=== PATIENT | male | born 1995 | race Caucasian/White ===

== ENCOUNTER → 2019-03-18 11:08 | Outpatient (CLI) | payer OTHER, SELFPAY | PROVIDERS: Family Provider Family Medicine; PCP Family Medicine; Referring Provider Otolaryngology Otolaryngology/Facial Plastic Surgery; Visit Provider Otolaryngology Otolaryngology/Facial Plastic Surgery | DX: T78.40XA Allergy, unspecified, initial encounter (principal) | CPT/HCPCS: 36415 ==

== ENCOUNTER → 2019-10-05 08:55 | Outpatient (CLI) | payer OTHER, SELFPAY ==
[2019-10-05 08:52] VITALS: BMI 28.2
--- NOTE | 2019-10-05 08:55 | RAD_ITS ---
STUDY: X-RAY - RIGHT KNEE REASON FOR EXAM: Male, 23 years old. PAIN AND SWELLING AFTER INJURY. DIFFICULT TO STRAIGHTEN TECHNIQUE: 4 view(s) of the knee. COMPARISON: None. FINDINGS: Normal visualized distal femur. Normal visualized proximal tibia and fibula. Normal proximal tibiofibular articulation. Normal medial femorotibial compartment. Normal lateral femorotibial compartment. Normal patellofemoral articulation. Small joint effusion. RAD/Knee 4 or More Views IMPRESSION: Small joint effusion. Electronically Signed: Mina Burciaga, at 15:09 EDT , Service support ,
== END ==
PROVIDERS: PCP Family Medicine; Referring Provider Orthopaedic Surgery; Visit Provider Orthopaedic Surgery
DX: M25.561 Pain in right knee (principal)
CPT/HCPCS: 73564

== ENCOUNTER → 2019-10-07 06:26 | Outpatient (CLI) | payer OTHER, SELFPAY ==
[2019-10-05 08:52] VITALS: BMI 28.2
--- NOTE | 2019-10-07 06:28 | MRI_ITS ---
STUDY: MRI RIGHT KNEE REASON FOR EXAM: 23-year-old male. Wrestling injury. TECHNIQUE: Standardized fat and water weighted pulse sequences were obtained in all 3 orthogonal planes. COMPARISON: None. FINDINGS: Patellofemoral articular cartilage preserved. Lateral compartment articular cartilage preserved. Medial compartment articular cartilage preserved. Posterior lateral tibial corner bone contusion/edema (sagittal image 7 series 4). No acute fracture line. No acute dislocation. Lateral meniscal tiny free edge vertical tear (coronal image 13 series 7 and sagittal image 7 series 4) with potential posterior horn radial tear component versus less likely irregular meniscal femoral ligament attachment site (sagittal images 7 through 11 series 4). Medial meniscus intact. Anterior cruciate ligament rupture (sagittal image 15 series 4). Posterior cruciate ligament intact. Medial collateral ligament near complete proximal fiber tear (coronal image 16 series 6). Large volume joint effusion. Small popliteal cyst. Extensive soft tissue swelling predominating medially. Normal distal semimembranosus, gracilis and semitendinosus tendons. Normal proximal tibiofibular articulation. Normal lateral collateral (fibular) ligament. Normal popliteus tendon. Normal biceps femoris tendon. Normal medial and lateral patellar retinaculum. Normal quadriceps tendon. Normal patellar tendon. Normal Hoffa''s fat pad. MRI/Lower Ext Joint Only (Routine) IMPRESSION: ACL rupture with corresponding bone contusion MCL near complete proximal fiber tear Lateral meniscal tears Large volume joint effusion, small popliteal cyst and soft tissue swelling Electronically Signed: Caesar Isidro DO at 8:14 EDT Tel , Service support ,
== END ==
PROVIDERS: PCP Family Medicine; Referring Provider Orthopaedic Surgery; Visit Provider Orthopaedic Surgery
DX: S83.519A Sprain of anterior cruciate ligament of unspecified knee, initial encounter (principal); S83.241A Other tear of medial meniscus, current injury, right knee, initial encounter; S83.411A Sprain of medial collateral ligament of right knee, initial encounter
CPT/HCPCS: 73721

== ENCOUNTER 2019-10-17 13:03 | Outpatient (RCR) | payer OTHER, SELFPAY ==
[2019-10-11 13:01] VITALS: BMI 28.2
--- NOTE | 2019-10-17 14:18 | HP.PTEVAL ---
Patient's Visit Information TAJ BURKS is a 24 year old M referred to Physical Therapy by Dr. Amanda Fierro, DO with a diagnosis of MCL/ACL TEAR,MEDIAL/LATERAL MENISCUS TEAR. Date of Evaluation: 10/17/19 Physical Therapist: Dave Sanders, PT, Cert MDT, OCS - Visit Plan Frequency: 1X Plan: PT EVAL ONLY PROVIDED WITH HEP - Subjective This 24 y/o male presenst to physical therapy with right knee ACL/MCL and medial/lateral meniscus tear. Patient tore knee ligaments wrestling with brother twisted and felt pop with pain a swelling September 30. Seen DR Fierro did MRI showed tears. Recommended HEP and brace on for gait and crutches with NBW RLE. Patient had edema and min pain. Patient has min c/o 's .Patient has difficulty one step with crutches. Denies parathesia/tingling. Patient need PT prior to surgery. Patient condtion affects QOL. 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 GAIT: ambulates with crutches NWB RL with crutches. BALANCE: good - with crutches. QUAD ATROPHIED. EDEMA: + joint line. PALPATION: tender medial joint line. AROM: 20-70 degrees supine knee flexion. MMT: quads/hams NT,hip 4-/5 ankle 4/5. QUAD SET POOR - Special Tests R Knee Lore - Meniscus: Positive R Knee Delmar - ACL: Positive R Knee Anterior Drawer - ACL: Positive R Knee Valgus - MCL: Positive - Goals Goal 1:: Patient was provided with HEP for Prehab. Goal Time Frame: 1visits - Rehabilitation Potential Physical Therapy Diagnosis: Patient has right ACL/MCL tear ,meniscus medial/lateral knee with poor ,strength impairs gait and function ,thus plan for surgery end of month.Provided with HEP. Rehabilitation Potential: Good - Anticipated Interventions Patient/Client Instruction: Educate patient on: Condition, Plan of Care For the Purpose of:: To decrease pain, To increase ROM, To improve muscle performance and motor function, To improve ability to perform ADL's, To increase tolerance to activity/condition/position, To improve ability of physical actions for home/community/work/leisure, To increase flexibility/ROM Other: HEP Thank you for the opportunity to evaluate your patient. For Medicare and Medicare HMO plans, please review the plan of care and approve it. It will need to be FAXED BACK to us at [phone] for Medicare purposes. For Medicare only, by signing this I certify the plan of care. Please let me know if there are questions or concerns regarding this plan of care. Physician Signature: Date:
== END 2019-10-17 19:00 | disposition home or self-care (01) ==
LOC: PT 13:03
PROVIDERS: PCP Family Medicine; Referring Provider Orthopaedic Surgery; Visit Provider Orthopaedic Surgery
DX: S83.241D Other tear of medial meniscus, current injury, right knee, subsequent encounter (principal); S83.281D Other tear of lateral meniscus, current injury, right knee, subsequent encounter
CPT/HCPCS: 97110; 97162

== ENCOUNTER 2020-01-04 10:10 | Day surgery (SDC) | payer OTHER, SELFPAY ==
[2019-10-11 13:01] VITALS: BMI 28.2
[2019-12-27 09:54] VITALS: BMI 28.2
[2020-01-04] VITALS (8 sets, daily range): BP systolic 121–177; BP diastolic 87–106; PULSE 72–107; RESP 14–16; TEMP 36.9–37.7; O2SAT 96–100; BMI 28.8
[2020-01-04] MEDS: Lactated Ringers 1,000 ML 100 ML IV ×2 (12:15→13:16)
[2020-01-04] MEDS: Cefazolin 2 GM in 0.9% Normal Saline 100 ML IV (12:20)
--- NOTE | 2020-01-04 12:30 | HP_ITS ---
I have re-examined the patient. There are no clinical changes since date of exam. Intake Intake Visit Reasons: RIGHT KNEE Allergies bee venom protein (honey bee) Allergy (Verified 12/02/19 11:17) swelling PFSH Surgical History (Updated 10/05/19 @ 08:56 by Leta Mendes) H/O left wrist surgery (Acute) Social History (Updated 12/27/19 @ 12:[address] Amanda Fierro, ) Smoking Status: Current some day smoker HPI RIGHT KNEE: Surgical H&P: Yes Details: Parts of this documentation were recorded by a scribe, this documentation accurately reflects the service provided and the decisions made by me, Dr. Amanda Fierro, 12/27/19 0943. TAJ BURKS is a 24 year old M here today for right knee followup. Patient continues to have generalized right knee pain and states that he has been having increased lateral knee pain. He is here today to sign surgery consent for right ACL reconstruction and medial and lateral meniscus repair vs meniscectomy. Denies numbness, tingling or other associated symptoms.Has been wearing his TROM brace locked in extension. ROS Musc Reports as per HPI Skin/Breast Reports as per HPI Neuro Yes as per HPI Ortho Exam Right Knee Skin/Wound: No erythema, No ecchymosis, No swelling Knee ROM: Yes ROM-Extension -20 to 0, No ROM-Flexion 0-140 Examination: Yes Med jt line tenderness Stability: 1+: Valgus 30 (Minimal laxity today), 3+: Anterior Drawer KNEE: no calf pain Assessment & Plan Problems 1. Complete tear of anterior cruciate ligament of right knee, subsequent encounter S83.813D 2. Tear of medial meniscus of right knee, current, unspecified tear type, subsequent encounter S83.000D Plan Reviewed the pre-operative plans with the patient. Risks and benefits of the procedure were fully explained, including but not limited to infection, neurovascular injury, continued pain, arthritis, stiffness, need for further surgery, re-injury, DVT, PE, general risks of anesthesia, and loss of limb or life. The patient understands all the risks and does wish to proceed with written consent. Spoke with the patient about the risk of arthofibrosis with ACL reconstruction and meniscus repair. We discussed the current risk associated COVID-19. While it is understood that there is a community spread of COVID 19 the risk of alex COVID-19 while at [facility] is very low, however, the risk cannot be completely mitigated because of the community spread of the disease. We discussed in detail the risk of exposure to and or potential harm posed by the COVID-19 virus with having a surgery/procedure at this time versus the risk of delaying the surgery/procedure. Is not possible to know either the risk of delaying the surgery procedure or chance of getting an infection with perfect accuracy, but a joint decision was made to proceed at this time with a schedule surgery/procedure as indicated on the consent form. Patient was notified that we will need to comply with any screening or testing [facility] wishes to perform or that surgery may be delayed for any positive results. Follow up for brace check and 2 week post op or sooner if pain, swelling, numbness or associated symptoms, or concerns develop. All questions answered. Patient in agreement of plan. Coding Level of Care Code Off vis,est,level 4 Diagnoses Complete tear of anterior cruciate ligament of right knee, subsequent encounter S83.511D ??Encounter type: subsequent encounter Tear of medial meniscus of right knee, current, unspecified tear type, subsequent encounter S83.241D ??Encounter type: subsequent encounter ??Meniscus tear of knee type: unspecified type ??Tear current or old: current COVID (Procedure Consent) Procedure Criteria Procedure Criteria: Yes Elective The surgeon/proceduralist and patient have discussed in detail the risk of exposure to and/or potential harm posed by the COVID-19 virus with having a surgery/procedure at this time versus the risk of? delaying the surgery/procedure. It is not possible to know either the risk of delaying the surgery or procedure or chance of getting an infection with perfect accuracy, but a joint decision was made between the patient and the surgeon/proceduralist ?to proceed at this time with the scheduled surgery/procedure as indicated on the consent form.
[2020-01-04] MEDS: Epinephrine (1 mg/ml) 1 MG/ML VIAL (12:42)
[2020-01-04] MEDS: Mupirocin Ointment 22gm Tube 1 APPLIC (12:42)
--- NOTE | 2020-01-04 14:52 | DCINST_ITS ---
Discharge Diet: No Restrictions - toe-touch weightbearing operative extremity, brace may be unlocked while seated 0 to 30 degrees, brace locked in extension during ambulation and at night, follow-up on Thursday for dressing change and brace adjustment with Daniel Wayt, may get incision wet after that time, call with increased pain numbness tingling or other issues arise Discharge Activity: May Not Drive May shower in (days): 1 Ice area for (Minutes): 20 - Every hour while awake. Weight Bearing Status: Weight bearing as tolerated Keep extremity elevated above heart level: Operative Extremity Call your doctor if your incision/area has: Continuous Slow Oozing, Sudden Increased Bleeding, Increased Pain/ Swelling, Increased Redness, Foul Smelling Discharge Call your doctor if you observe: Fever of 101 or Higher, Coldness, Increased Pain, Numbness or Tingling, Change in Color, Calf discomfort Allergies/Adverse Reactions: Allergies bee venom protein (honey bee) Allergy (Verified 01/04/20 11:04) swelling Medications to take at Discharge Hydrocodone Bitart/Apap 5-325 [Wadley 5MG-325MG] 1 - 2 tab PO Q6H PRN PRN 5 Days #40 tab 01/04/20 Zolpidem Tartrate [Ambien (Generic)] 5 mg PO QHS PRN PRN #14 tablet 01/04/20 The following prescriptions were given: Zolpidem Tartrate [Ambien (Generic)] 5 mg PO QHS PRN PRN #14 tablet PRN Reason: Insomnia Transmission Status: Sent to [facility] Hydrocodone Bitart/Apap 5-325 [Wadley 5MG-325MG] 1 - 2 tab PO Q6H PRN PRN 5 Days #40 tab PRN Reason: Pain Transmission Status: Received by [facility] Primary Care Physician: Abisai Daniel MD [Primary Care Provider] - Test Results: Test results from this visit will be discussed in further detail at your follow- up appointment, if applicable. Please Follow Up With: Amanda Fierro, DO - [phone]
--- NOTE | 2020-01-04 14:53 | PCM.OPRPT ---
Report of Operation Date of Procedure: 01/04/20 Pre-Operative Diagnosis: right knee acl tear, lateral meniscus tear Post-Operative Diagnosis: same Surgery/Procedure Performed:: right knee acl recon w quad tendon, lat men repair crown blocker: Avinash Ivey Type of Anesthesia:: General/Regional Anesthesiologist: Caesar Choudhary Estimated Blood Loss (mL): min Fluids Replaced: see chart Description of Procedure: Preop note Patient is a 24-year-old male who injured his right knee while playing wrestling with his brothers. Immediate pain instability. Was seen in the office MRI confirms MCL ACL and lateral meniscus tears. Patient waited over 2 months as he had some other issues he was producing up school etc. and his MCL did heal and he did have a stable MCL on examination. However his ACL and lateral he does have lateral joint line pain. Risk benefits and alternatives were discussed with patient. Risk include but not limited to blood loss, blood clot, infection, neurovascular, failure procedure, loss of life and loss of limb. Family is aware patient is aware would like proceed with right knee arthroscopy quad tendon ACL reconstruction repair as indicated. Operative note Patient seen and examined preoperative holding area. Right leg was marked. Patient brought the operating placed supine on the operating table. Signed, anesthesia, antibiotics were administered the right leg was prepped and draped usual sterile technique with a tourniquet around his upper thigh. All bony prominences well-padded and his SCDs placed on his contralateral limb. I marked her quad tendon harvest site as well as our portal placement as well as the tibial and lateral femoral drill sites. The right leg is an elevated segmented and tourniquet was raised her pressure of 250 torr. Timeout was performed. We then used a 15 blade to cut through the skin at the level of our quad tendon graft. We did dissect down tenotomies to level the quad tendon the quad tendon peritenon was excised we then used a double blade 10 mm in width to excise on either medial lateral for our quad tendon we then used a 15 blade to truncated most distally. We then were able to truncate the graft approximately 75 mm of graft. Repaired in standard technique on the back table. We then began our diagnostic arthroscopy. The patellofemoral joint was unremarkable the medial joint line was intact we created anterior medial portal and direct visualization. The medial meniscus was intact and stable probing. The ACL was probed it was obviously torn. The PCL was present within the notch. There was unstable posterior horn lateral meniscus tear. We then inserted a rasp to rasp lateral meniscus tear. We then placed to reverse curved 360 FasT-Fix devices across the tear and we inserted our probe we had stable repair meniscus. We then moved to her ACL at which was debrided from the notch. We were able to visualize its insertion on the lateral femoral cortex. We then inserted a flip corner block cutter standard technique making incision over the IT band laterally. We measured the graft be 10-1/2 on the back table. We then retrograded drilled about 25 peel it. We then moved to the tibial side please note that we did irrigate any bony debris from the knee. The moved to the tibial side and this was done in retrograde fashion as well. We then irrigated the copious with copious muscle sterile saline. We then brought the graft on the back table placed through the femoral side flipped the button on the lateral femoral cortex pulled down and then brought the graft into the tunnel. We then pulled the graft into the tibial side as well. We then used the button to flip on the tibial cortex in standard technique placing a reverse posterior drawer at that same time. Please note that prior to fixating the graft on the tibial side we did range we did stress the graft and flexion extension about 20 times. We then oversewed on top of the button. We then pulled the graft further into the femoral tunnel. We then irrigated all incision sites with copious muscle sterile saline. The quad tendon harvest that was closed with 2-0 Vicryl the subcuticular with 3-0 Vicryl and running 4 Monocryl and the portals with 4-0 nylon the lateral femoral condyle cortex as well as the medial tibial cortex was closed with 2-0 Vicryl and 4-0 nylon. Tourniquet was deflated for total working time of 120 minutes. Sterile dressings were applied tourniquet and a brace was applied to the right lower extremity locked in extension and allowed to be 0 to 30 degrees. Patient taught procedure well no complication transferred to recovery room in stable condition will receive regional block. Postoperative note Toe-touch weightbearing right leg 0-30 Pharmacy has prescriptions Call with increased pain numbness tingling or other issues arise Follow-up on Thursday with Daniel for dressing change initiation PT Dragon disclaimer This note was generated with [employer] dictation software. It may contain incorrect words, spelling, and punctuation that were not noted in checking the note before signing. Grafts/Implants Used: graftlink arthrex
[2020-01-04] MEDS: HYDROcodone Bitartrate/Apap 5/325 Tablet PO (16:49)
== END 2020-01-04 18:02 | disposition home or self-care (01) ==
LOC: SDC 10:13 → AC 10:23
PROVIDERS: Anesthesiology; PCP Family Medicine; Referring Provider Orthopaedic Surgery; Visit Provider Orthopaedic Surgery
PROC: (CPT 29882; principal; 2020-01-04 12:25)
DX: S83.511A Sprain of anterior cruciate ligament of right knee, initial encounter (principal); S83.281A Other tear of lateral meniscus, current injury, right knee, initial encounter; X58.XXXA Exposure to other specified factors, initial encounter; Y93.72 Activity, wrestling; Y92.9 Unspecified place or not applicable; Y99.9 Unspecified external cause status; Z11.59 Encounter for screening for other viral diseases; F17.200 Nicotine dependence, unspecified, uncomplicated
CPT/HCPCS: 01400; 29882; 29888; 64447; 87635; C1713; C9803; J7120; J2405; U0003

== ENCOUNTER 2020-04-13 13:00 | Outpatient (RCR) | payer OTHER, SELFPAY ==
[2020-01-13 10:52] VITALS: BMI 28.2
--- NOTE | 2020-01-23 14:45 | HP.PTEVAL ---
Patient's Visit Information TAJ BURKS is a 24 year old M referred to Physical Therapy by Dr. Amanda Fierro DO with a diagnosis of S/P R ACL reconstruction and lat meniscus repair 01-04-2020. Date of Evaluation: 01/23/20 Physical Therapist: LUIS Cazares - Visit Plan Frequency: 1-2x /Week Duration: 3 Months Plan: Increase R knee AROM 0-60 (at goal date of 01-06-2020) and then 0-90 degrees until return to Dr and Dr releases on 01-14-2020.... 1X/ week to monitor Quad strength and ROM. Once cleared to full ROM in 4 weeks begin Increase ROM, strength and increase WB activities as soon as cleared by MD. with HEP and modlaites as needed. HEP: SLR with brace on or AA with mom, QS, ankle pumps - Subjective He was wrestling with his brother in flip flops on September 30 and blew his knee out. 01-04-2020 Lat meniscus repair and ACL... He is NWB. They used the quad graft to fix the ACL... He will be 3 weeks post op on Feb 14 he will be 6 weeks and will hopefully be able to put some weight through his leg. She did not give him exercises except ankle pumps and Keep leg straight. His brace is locked at zero degrees. He is not on pain meds now besides IBprof. He is not sleeping well. He is not going up and down the stairs... with no rails. - Pain R knee pain Pain Intensity (Out of 10): 2 Pain Intensity Range: 8 - Objective R girth measurements: infrapatella 38.4, 42.4, 45.1 and 2 inches above 48.8. L girth measurements: 37.9, 38.6, 42.2, 45.4. Gait: walks with 2 crutches with NWB on the R LE. Stairs: up with the L leg with 2 crutches and then down with the R leg and 2 crutches with only weight on leg for balance.... AA SLR 3 X 10 (watch for extensor lag). Pt is able to do SLR in brace with knee locked into extension with brace locked into extension. AAROM: 50 51 degrees R knee flexion and 0 degrees extension. Good patella mobility. - Goals Goal 1:: I HEP Goal Time Frame: 8-12 Weeks Goal 2:: Increase R knee AROM 0-60 (at goal date of 02-06-2020) and then 0-90 degrees until return to Dr and Dr releases on 02-14-2020.... Goal Time Frame: 8-12 Weeks Goal 3:: Be able to walk with no antalgic gait by DC Goal Time Frame: 4-6 Weeks Goal 4:: Be able to complete 4 X 20 SLR with no extensor lag by 02-06-2020 Goal Time Frame: 4-6 Weeks - Rehabilitation Potential Rehabilitation Potential: Good - Anticipated Interventions Patient/Client Instruction: Educate patient on: Condition, Plan of Care For the Purpose of:: To decrease pain, To decrease swelling/inflammation, To increase ROM, To improve nutrient delivery to tissue, To improve muscle performance and motor function, To improve ability to perform ADL's, To increase tolerance to activity/condition/position, To improve performance and independence with ADL's, To decrease level of supervision to perform tasks, To improve ability of physical actions for home/community/work/leisure, To improve gait and locomotor functions, To improve health of tissue, To decrease soft tissue restriction, To increase flexibility/ROM, To improve safety with gait, To improve safety, To improve health and function Therapeutic Exercise to Include: Strength training, Endurance training, Balance training, Flexibilty training, Gait and locomotor training, Passive ROM, Active ROM For the Purpose of:: To decrease pain, To decrease swelling/inflammation, To increase ROM, To improve nutrient delivery to tissue, To increase oxygenation perfusion, To improve muscle performance and motor function, To improve ability to perform ADL's, To increase tolerance to activity/condition/position, To improve performance and independence with ADL's, To decrease level of supervision to perform tasks, To improve ability of physical actions for home/community/work/leisure, To improve gait and locomotor functions, To improve health of tissue, To decrease soft tissue restriction, To increase flexibility/ROM, To improve balance, To improve safety with gait Functional Training to Include: Gait training For the Purpose of:: To improve gait and locomotor functions, To improve safety with gait IF ES: Yes Cryotherapy (ice pack, ice massage): Yes For the Purpose of:: To decrease pain, To decrease swelling/inflammation, To increase ROM, To improve nutrient delivery to tissue Thank you for the opportunity to evaluate your patient. For Medicare and Medicare HMO plans, please review the plan of care and approve it. It will need to be FAXED BACK to us at [phone] for Medicare purposes. For Medicare only, by signing this I certify the plan of care. Please let me know if there are questions or concerns regarding this plan of care. Physician Signature: Date:
--- NOTE | 2020-03-28 14:01 | HP.PTREVAL ---
Dr. Amanda Fierro, DO, It has been my pleasure to treat TAJ BURKS over the last 17 visits for S/P R ACL reconstruction and lat meniscus repair 01-04-2020. Please see the progress note below for an update on the physical therapy plan of care! Subjective: Pt reports that he got a job in [employer]... he will get details soon. Pt saw Dr Bell and she said he can start to run..... thought he was doing fantastic... Still tight on the LCL.. but feels that will better in time. He has another check up in 3 months and will get a brace fitted in 3 months. He feels he no retictions except for sports. 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 Gait:: on TM with faster pace walk... he had decreased coordination with his R LE and increase antalgic gait favorin his L leg. Pt feels that his L leg is not as coordinated as his R with faster pace walking. OHS... pt still favors his L LE.... has to really concentrate on equal weight shifting. Plan Plan: Protocol in folder.... ADD strap gastroc stretch. 1X/ week to monitor Quad strength and ROM. Once cleared to full ROM in 4 weeks begin Increase ROM, strength and increase WB activities as soon as cleared by MD. with HEP and modlaites as needed. HEP: SLR with brace on or AA with mom, QS, ankle pumps, S/L hip abd Goals Goal 1:: I HEP Goal Time Frame: 8-12 Weeks Goal Progress: Goal Met Goal 2:: Increase R knee AROM 0-60 (at goal date of 02-06-2020) and then 0-90 degrees until return to Dr and releases on 02-14-2020.... Goal Time Frame: 8-12 Weeks Goal 3:: Be able to walk with no antalgic gait by DC Goal Time Frame: 4-6 Weeks Goal 4:: Be able to complete 4 X 20 SLR with no extensor lag by 02-06-2020 Goal Time Frame: 4-6 Weeks Goal Progress: Goal Met Goal 5:: Be able to run with no pain and no antalgic running pattern. Goal Time Frame: 4-6 Weeks Anticipated Interventions Patient/Client Instruction: Educate patient on: Condition, Plan of Care For the Purpose of:: To decrease pain, To decrease swelling/inflammation, To increase ROM, To improve nutrient delivery to tissue, To improve muscle performance and motor function, To improve ability to perform ADL's, To increase tolerance to activity/condition/position, To improve performance and independence with ADL's, To decrease level of supervision to perform tasks, To improve ability of physical actions for home/community/work/leisure, To improve gait and locomotor functions, To improve health of tissue, To decrease soft tissue restriction, To increase flexibility/ROM, To improve safety with gait, To improve safety, To improve health and function Therapeutic Exercise to Include: Strength training, Endurance training, Balance training, Flexibilty training, Gait and locomotor training, Passive ROM, Active ROM For the Purpose of:: To decrease pain, To decrease swelling/inflammation, To increase ROM, To improve nutrient delivery to tissue, To increase oxygenation perfusion, To improve muscle performance and motor function, To improve ability to perform ADL's, To increase tolerance to activity/condition/position, To improve performance and independence with ADL's, To decrease level of supervision to perform tasks, To improve ability of physical actions for home/community/work/leisure, To improve gait and locomotor functions, To improve health of tissue, To decrease soft tissue restriction, To increase flexibility/ROM, To improve balance, To improve safety with gait Functional Training to Include: Gait training For the Purpose of:: To improve gait and locomotor functions, To improve safety with gait IF ES: Yes Cryotherapy (ice pack, ice massage): Yes For the Purpose of:: To decrease pain, To decrease swelling/inflammation, To increase ROM, To improve nutrient delivery to tissue Please do not hesitate to contact me at [phone] by phone or if you have questions or concerns regarding this new plan of care! Sincerely, Elizabeth Chowdary MPT
--- NOTE | 2020-04-16 15:13 | HP.PTDCSUM_ITS ---
It has been my pleasure to treat GURDEEP BURKS referred by Dr. Amanda Fierro DO, with the diagnosis of S/P R ACL reconstruction and lat meniscus repair 01-04-2020 for a total of 21 visit(s). Discharge Date: 04/16/20 Please see the following information for a summary of their discharge status. Subjective: Feeling good. Just a good muscle soreness. No knee pain. R knee pain Pain Intensity (Out of 10): 0 % Improvement: 93 Objective/Function: Making excellent progress. 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 Issued home program for independent completion over the next few weeks as he transitions to new [facility]. Goal 1:: I HEP Goal Progress: Goal Met Goal 2:: Increase R knee AROM 0-60 (at goal date of 02-06-2020) and then 0-90 degrees until return to Dr and Dr releases on 02-14-2020.... Goal Progress: Goal Met Goal 3:: Be able to walk with no antalgic gait by DC Goal Progress: Goal Met Goal 4:: Be able to complete 4 X 20 SLR with no extensor lag by 02-06-2020 Goal Progress: Goal Met Goal 5:: Be able to run with no pain and no antalgic running pattern. Goal Progress: Progressing Plan: Discharge to independent home program. Discharge Comments: DC to HEP If there are questions or concerns regarding this patient's physical therapy, please feel free to call me at [phone]. Thank you for the referral of this patient. Sincerely, Elizabeth Chowdary, MPT
== END 2020-04-13 19:00 | disposition home or self-care (01) ==
LOC: PT 13:00
PROVIDERS: PCP Family Medicine; Visit Provider Orthopaedic Surgery
DX: Z98.890 Other specified postprocedural states (principal)
CPT/HCPCS: 97014; 97110; 97161; 97530; G0283

== ENCOUNTER 2021-07-29 11:51 | Emergency (ER) | payer OTHER, SELFPAY ==
[2021-07-29 11:52] VITALS: BP 154/97; PULSE 60; RESP 18; TEMP 36.3; O2SAT 98; BMI 26.3
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
--- NOTE | 2021-07-29 12:37 | CT_ITS ---
STUDY: CT CERVICAL SPINE WITHOUT CONTRAST REASON FOR EXAM: Male, 25 years old. Injury RADIATION DOSAGE (If Supplied By Facility): CTDIvol = ( 17.62 ) mGy, DLP = ( 376.93 ) mGycm TECHNIQUE: High resolution transaxial imaging was performed without contrast material. Sagittal and coronal images were reconstructed. Individualized dose optimization techniques were used for this CT. COMPARISON: None FINDINGS: Normal craniovertebral junction. Normal anterior atlantoaxial articulation. Normal odontoid process. Normal cervical lordosis. Normal vertebral bodies and posterior osseous elements. C2-3: Normal endplates. Normal disc height and morphology. Normal central canal and intervertebral neuroforamina. C3-4: Slight irregularity posteriorly at the superior endplate of C4 possibly related to old injury. Normal disc height and morphology. Normal central canal. Uncovertebral spurring slightly protruding into the intervertebral neuroforamina. C4-5: Normal endplates. Normal disc height and morphology. Normal central canal and intervertebral neuroforamina. C5-6: Mild spurring at the endplates. Normal disc height and morphology. Normal central canal and intervertebral neuroforamina. C6-7: Normal endplates. Normal disc height and morphology. Normal central canal and intervertebral neuroforamina. C7-T1: Normal endplates. Normal disc height and morphology. Normal central canal and intervertebral neuroforamina. Normal visualized soft tissue structures. CT/Spine Cervical without Contras IMPRESSION: No acute bony injury. Electronically Signed: Lisandro Azar DO at 13:11 EDT Reading Location ID and State: [facility] / [place] Tel [phone], Service support ,
--- NOTE | 2021-07-29 12:37 | CT_ITS ---
STUDY: CT FACIAL BONES WITHOUT CONTRAST REASON FOR EXAM: Male, 25 years old. Injury RADIATION DOSAGE (If Supplied By Facility): CTDIvol = ( 25.01 ) mGy, DLP = ( 648.71 ) mGycm TECHNIQUE: The patient was scanned in a multi detector CT scanner. Sagittal and coronal images were reconstructed. Individualized dose optimization techniques were used for this CT. COMPARISON: None. FINDINGS: Normal soft tissue structures. Normal orbital meeks and orbital contents. Normal nasal bones and anterior nasal spine. Normal facial bones. There is no demonstrated fracture. Nasal septal deviation towards the right side of the midline. There is a 1.5 cm x 2.3 cm polyp or retention cyst at the base of the left maxillary sinus. Mucosal thickening at the base of the right maxillary sinus. Partial opacification of the ethmoid sinuses. CT/Sinus/Facial Bone IMPRESSION: Sinusitis. Electronically Signed: Mina Burciaga MD at 13:09 EDT ,
[2021-07-29] MEDS: Ondansetron ODT 4 MG Tablet PO (12:41)
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
== END 2021-07-29 14:06 | disposition home or self-care (01) ==
PROVIDERS: Emergency Provider Emergency Medicine; PCP Family Medicine; Visit Provider Emergency Medicine
DX: S06.0X0A Concussion without loss of consciousness, initial encounter (principal); S16.1XXA Strain of muscle, fascia and tendon at neck level, initial encounter; V89.2XXA Person injured in unspecified motor-vehicle accident, traffic, initial encounter
CPT/HCPCS: 70450; 70486; 72125; 99283

== ENCOUNTER 2021-08-28 | Emergency (ER) | payer OTHER, SELFPAY ==
[2021-08-28 00:02] VITALS: BP 169/106; PULSE 101; RESP 18; TEMP 37; O2SAT 98; BMI 29.1
--- NOTE | 2021-08-28 00:29 | EKG12_ITS ---
Test Reason : CP Blood Pressure : / mmHG Vent. Rate : 096 BPM Atrial Rate : 096 BPM P-R Int : 132 ms QRS Dur : 090 ms QT Int : 344 ms P-R-T Axes : 055 054 004 degrees QTc Int : 434 ms Normal sinus rhythm Nonspecific T wave abnormality Abnormal ECG No previous ECGs available Confirmed by MYRIAM ROSARIO, ARSLAN ([id number]), electronic news gathering editor LIANA BUSTILLO ([id number]) on 09/03/2021 1:17:33 PM Referred By: [facility]F Confirmed By:ARSLAN MIGUEL MD
--- NOTE | 2021-08-28 00:41 | RAD_ITS ---
EXAM: XR CHEST, 2 VIEWS CLINICAL INDICATION: chest pain TECHNIQUE: Frontal and lateral views of the chest. This report was created using [employer] report generation technology. COMPARISON: None. FINDINGS: LUNGS AND PLEURAL SPACES: Unremarkable. No consolidation or edema. No pneumothorax. No effusion. HEART: Unremarkable. Cardiac silhouette not enlarged. MEDIASTINUM: Central airways and mediastinal contour are unremarkable. BONES/JOINTS: Unremarkable. SOFT TISSUES: Unremarkable. RAD/Chest PA and Lateral IMPRESSION: No radiographic evidence of acute cardiopulmonary disease. Electronically Signed: Andrew Bagley MD at 1:04 EDT ,
[2021-08-28 01:00] VITALS: BP 142/101; PULSE 89; RESP 16; O2SAT 96
[2021-08-28 01:01] LABS: Troponin-I HS 24 pg/mL (3.0-78.0)
[2021-08-28 01:41] LABS: Absolute Lymphocyte Count 2.37 X10^3/uL (0.83-4.51); Absolute Neutrophil Count 7.4 X10^3/uL (2.0-7.7); Basophil# 0.07 X10^3/uL; Basophil% 0.7 % (0-1); Eosinophil# 0.06 X10^3/uL; Eosinophils% 0.6 % (0-5); Hematocrit 42.2 % (40-54); Hemoglobin 14.8 g/dL (13.0-16.5); Lymphocyte # 2.37 X10^3/ul (0.83-4.51); Lymphocyte % 22.4 % (19-41); Mean Corp Hgb Conc 35.1 g/dL (32-36); Mean Corpuscular Hgb 31.2 pg (27.0-32.0); Mean Corpuscular Volume 88.8 fL (80-94); Mean Platelet Vol. 9.7 fl (6.2-12.0); Monocyte% 5.7 % (0-10); NRBC Flagged by Analyzer 0 % (0-5); Neutrophil # 7.42 X10^3/uL (2.7-7.7); Neutrophil % 70.1 % (47-70); Platelet Count 268 K/mm3 (150-450); RBC Distribution Width CV 11.9 % (11.6-14.6); RBC Distribution Width SD 38.7 fl (35.1-43.9); Red Blood Count 4.75 M/mm3 (4.6-6.2); White Blood Count 10.6 K/mm3 (4.4-11.0)
[2021-08-28 01:52] LABS: Anion Gap 10 (5-15); BUN 14 mg/dL (7-18); BUN/Creat Ratio 11.2 RATIO (10-20); Calcium,Total 9.1 mg/dL (8.5-10.1); Chloride 97 mmol/L (98-107); Creatinine, Serum 1.25 mg/dL (0.70-1.30); EST Glomerular Filtration Rate 74 mL/min (>60); Est Glom Filt Rate - Afr Amer 90 mL/min (>60); Estimated Creatinine Clearance 105.03 ml/min; Glucose 104 mg/dL (74-106); Potassium 3.6 mmol/L (3.5-5.1); Sodium Level 133 mmol/L (136-145)
[2021-08-28 01:59] LABS: BNP,B-Type NATRIURETIC PEPTIDE 5.2 pg/mL (0-100)
[2021-08-28 02:00] VITALS: BP 136/88; PULSE 97; RESP 13; O2SAT 96
[2021-08-28 02:02] LABS: D-Dimer Quantitative (DVT/PE) < 0.27 FEU/ug/m (0.27-0.49)
[2021-08-28 03:00] VITALS: BP 137/91; PULSE 81; RESP 20; O2SAT 95
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
[2021-08-28 03:13] LABS: Troponin-I HS 27 pg/mL (3.0-78.0)
[2021-08-28 03:18] VITALS: BP 137/91; PULSE 82; RESP 17; O2SAT 96
== END 2021-08-28 04:18 | disposition home or self-care (01) ==
PROVIDERS: Emergency Provider Emergency Medicine; Visit Provider Emergency Medicine
DX: R60.0 Localized edema (principal); S80.11XA Contusion of right lower leg, initial encounter; S80.12XA Contusion of left lower leg, initial encounter; V29.9XXA Motorcycle rider (driver) (passenger) injured in unspecified traffic accident, initial encounter; R07.89 Other chest pain; R06.00 Dyspnea, unspecified
CPT/HCPCS: 71046; 80048; 83880; 84484; 85025; 85379; 93005; 99284; A4216

== ENCOUNTER → 2021-08-28 | Outpatient (CLI) | payer OTHER, SELFPAY ==
--- NOTE | 2021-08-28 14:32 | VDLE_ITS ---
Reason For Study: swelling RIGHT LEFT GSV is normal. GSV is normal. CFV is compressible, spontaneous, phasic, CFV is compressible, spontaneous, phasic, competent and demonstrates normal competent, and demonstrates normal augmentation. augmentation. FV is compressible, spontaneous, phasic, FV is compressible, spontaneous, phasic, competent and demonstrates normal competent and demonstrates normal augmentation. augmentation. POP V is compressible, spontaneous, phasic, POP V is compressible, spontaneous, phasic, competent and demonstrates normal competent and demonstrates normal augmentation. augmentation. T/P Trunk is compressible. T/P Trunk is compressible. PTV is compressible. PTV is compressible. RT PerV is compressible. LT PerV is compressible. Procedure This is a venous duplex using B-mode, color flow and spectral Doppler. Exam performed in department. The exam was diagnostic. VL/Venous Duplex US - Ruiz Extrem Interpretation Summary No evidence for acute deep venous thrombosis bilateral lower extremities with p atent and compressible bilateral great saphenous veins. Ordering Physician: Heather Moser Performed By: Víctor David RVStacey
== END | disposition home or self-care (01) ==
LOC: CVS 14:30
PROVIDERS: Referring Provider Emergency Medicine; Visit Provider Emergency Medicine
DX: M79.89 Other specified soft tissue disorders (principal)
CPT/HCPCS: 93970

== ENCOUNTER 2022-04-08 10:30 | Outpatient (RCR) | payer OTHER, SELFPAY ==
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
--- NOTE | 2022-01-16 13:02 | HP.PTREVAL_ITS ---
Dr. Amanda Hathaway, DO, It has been my pleasure to treat TAJ BURKS over the last 18 visits for S/P ARTHROSCOPIC R KNEE SURGERY (SEE ABOVE). Please see the progress note below for an update on the physical therapy plan of care! Subjective: PATIENT REPORTS DR. HATHAWAY TOLD HIM HIS KNEE LOOKED GREAT AT FOLLOW UP LAST THURSDAY. REPORTS SHE TOLD HIM HE CAN WEAN OUT OF THE HINGE BRACE INTO COMPRESSION SLEEVE TOLERATED NOW. PATIENT REPORTS HE IS HOPING TO BE RELEASED BACK TO WORK IN 2 MORE MONTHS BUT IT MIGHT BE 3 MONTHS. F/U WITH DR. HATHAWAY IS PENDING APR 10 2021. 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 C/O MARY HS SORENESS TODAY AND PLANS TO DO MORE STRETCHING. REPORTS H/O CHRONIC MARY HS DYSFUNCTION. Objective/Function: PATIENT WAS SEEN TODAY FOR RE-ASSESSMENT OF PROGRESS TOWARD THE SET PT GOALS AND THE NEED FOR FURTHER PHYSICAL THERAPY VS READINESS FOR DISCHARGE. PATIENT IS MAKING GREAT PROGRESS TOWARD ALL PT GOALS AND IS A GOOD CANDIDATE TO CONTINUE PT BASED ON PROGRESS MADE AND ROOM FOR FURTHER IMPROVEMENT. PATIENT IS AGREEABLE. PROGRESS NOTE SENT TO DR. HATHAWAY 01/08 WITH THE FOLLOWING MEASUREMENTS: Quad girth 6 supra): 52.5` cm R / 54.0 cm L (97% symmetry). Calf girth (6 infra): 39.7cm R / 42cm L (94% symmetry). R knee: 0-145 degrees with overpressure into flexion. ABLE TO GET TO 143 DEG FLEXION TODAY ACTIVELY WITHOUT OVER-PRESSURE. INSTRUCTED PATIENT IN PRONE HIP EXTENSION, KNEE FLEXION STRAP STRETCHING FOR QUAD AND HIP FLEXOR STRETCHING AVOIDING KNEE JOINT PAIN. SWELLING IS CONTROLLED. GAIT IS NORMALIZED. ROM IS GOOD AND STRENGTH IS IMPROVING. CURRENT EX PROGRAM INCLUDES: Bike: 5 minutes. Lateral Walks: Black JS 32'x1 lap. 1a Goblet Squat: 30# 3x10. 1b Ball Hip Thrust: 45# 3x10. 1c Band Assist Nordics: Stephens 3x8. 2a Armando-rep leg press: 225# (Armando-reps: activation set of 20 at RPE 8. Then 3-5 reps every 20 seconds until unable to complete (3'53 total). HSS: 2X30 ea Plan Plan: SAFELY PROGRESS STRENGTHENING. MAINTAIN FULL ROM. PROMOTE PROPER MVMT PATTERNS. AVOID POST EXERCISE PAIN AND SWELLING. GOAL OF NO EPISODES OF INSTABILITY TO PROGRESS. Balance/Gait/Functional tests - Balance/Special Test Scores Lower Extremity Functional Score: 55 Goals Goal 1:: FULL RIGHT KNEE ROM Goal Time Frame: 4-6 Weeks Goal Progress: Progressing Goal 2:: INCREASE R LE STRENGTH TO 5/5 Goal Time Frame: 4-6 Weeks Goal Progress: Progressing Goal 3:: INDEP RECIPRICAL STEPS WITHOUT DEVIATION Goal Time Frame: 4-6 Weeks Goal 4:: INDEP HEP FOR CONTINUED IMPROVEMENT ONCE FORMAL PHYSICAL THERAPY CONCLUDES. Goal Time Frame: 6-8 Weeks Goal Progress: Progressing Anticipated Interventions Patient/Client Instruction: Educate patient on: Condition, Plan of Care, Risk Factors For the Purpose of:: To improve self management Therapeutic Exercise to Include: Strength training, Endurance training, Balance training, Coordination, Agility training, Flexibilty training, Neuromotor development For the Purpose of:: To decrease pain, To increase ROM, To improve muscle performance and motor function, To increase tolerance to activity/condition/position, To improve ability of physical actions for home /community/work/leisure Cryotherapy (ice pack, ice massage): Yes For the Purpose of:: To decrease pain, To decrease swelling/inflammation Please do not hesitate to contact me at [phone] by phone or if you have questions or concerns regarding this new plan of care! Sincerely, Bing Castillo PT, Cert MDT
--- NOTE | 2022-06-25 11:06 | HP.PTDCNRP_ITS ---
TAJ BURKS was seen in my office for initial evaluation on 12/09/21. The following Plan of Care was established for this patient: Initial Frequency: 2-3x /Week Initial Duration: 2-4 Months Patient/Client Instruction: Educate patient on: Condition, Plan of Care, Risk Factors For the Purpose of:: To improve self management Therapeutic Exercise to Include: Strength training, Endurance training, Balance training, Coordination, Agility training, Flexibilty training, Neuromotor development For the Purpose of:: To decrease pain, To increase ROM, To improve muscle performance and motor function, To increase tolerance to a ctivity/condition/position, To improve ability of physical actions for home/community/work/leisure Cryotherapy (ice pack, ice massage): Yes For the Purpose of:: To decrease pain, To decrease swelling/inflammation This patient was last seen in our office . Pertinent comments regarding their Physical therapy will appear below: Patient was discharged to indep exercise. He has not returned to Physical Therapy and is appropriate to return to MD for further follow-up as needed. At this point I will be discontinuing this patient from physical therapy. I would be happy to see this patient again in the future if found appropriate by the physician. Thank you! Bing Castillo, PT, Cert MDT Balance/Gait/Functional tests - Balance/Special Test Scores Lower Extremity Functional Score: 80
== END 2022-04-08 19:00 | disposition home or self-care (01) ==
LOC: PT 10:30
PROVIDERS: Referring Provider Orthopaedic Surgery; Visit Provider Orthopaedic Surgery
DX: Z47.89 Encounter for other orthopedic aftercare (principal)
CPT/HCPCS: 97016; 97110; 97161; 97164; 97530